=== PATIENT | male | born 1955 | race Caucasian/White ===

== ENCOUNTER 2022-09-11 11:51 | Outpatient (CLI) | payer MEDICARE, BC | END 2022-09-11 11:52 | disposition home or self-care (01) | LOC: BICRAD 11:51 | PROVIDERS: ATTEND Internal Medicine Rheumatology | DX: M19.031 Primary osteoarthritis, right wrist (principal); M13.0 Polyarthritis, unspecified; M18.0 Bilateral primary osteoarthritis of first carpometacarpal joints ==

== ENCOUNTER 2023-01-02 16:19 | Day surgery (SDC) | payer MEDICARE, BC ==
[2023-01-02] MEDS ORDERED: Bupivacaine/Epinephrine 0.25% 30 ML VIAL ONE (16:37)
[2023-01-02] MEDS ORDERED: fentaNYL PF 100 MCG/2 ML SYRINGE ONE (17:02)
[2023-01-02] MEDS ORDERED: Dexamethasone 20 MG/5 ML VIAL ONE (17:04)
[2023-01-02] MEDS ORDERED: Ondansetron PF 4 MG/2 ML Vial ONE (17:04)
[2023-01-02] MEDS ORDERED: Succinylcholine Chloride 100 MG/5 ML SYRINGE FS ONE (17:04)
[2023-01-02] MEDS ORDERED: PROPOFOL 200 MG/20 ML VIAL ONE (17:04)
[2023-01-02] MEDS ORDERED: PHENYLEPHRINE-NS 100 MCG/ML 10 ML SYRINGE ONE (17:04)
[2023-01-02] MEDS ORDERED: ePHEDrine Sulfate 50 MG/10 ML VIAL ONE (17:04)
[2023-01-02] MEDS ORDERED: NEOSTIGMINE 3 MG/3 ML SYR 3 MG/3 ML SYRINGE ONE (17:04)
[2023-01-02] MEDS ORDERED: Glycopyrrolate 0.2 MG/ML 5 ML SYRINGE ONE (17:04)
[2023-01-02] MEDS ORDERED: Lidocaine 1% PF 5 ML VIAL ONE (17:04)
[2023-01-02] MEDS ORDERED: Rocuronium Bromide 10 MG/ML (10ML VIAL) ONE (17:04)
[2023-01-02] MEDS ORDERED: HYDROcodone/Acetaminophen 5/325 mg Tablet ONE (19:13)
== END 2023-01-02 19:58 | disposition home or self-care (01) ==
LOC: SDC/OP 16:19
PROVIDERS: ATTEND Specialist
PROC: 0DTJ4ZZ Resection of Appendix, Percutaneous Endoscopic Approach (ICD-10-PCS; principal; 2023-01-02)
DX: K35.80 Unspecified acute appendicitis (principal)
CPT/HCPCS: 88304; A4649; J1100; J2405; J2704

== ENCOUNTER 2023-04-24 08:56 | Outpatient (CLI) | payer MEDICARE, BC ==
[2023-04-24 09:38] LABS: #Basophils 0.1 10x3/uL (0.0-0.2); #Eosinphils 0.1 10x3/uL (0.0-0.5); #Monocytes 0.6 10x3/uL (0.0-1.1); #Neutrophils 2.9 10x3/uL (1.5-8.4); %Basophils 1.3 % (0.0-2.0); %Eosinophils 1.3 % (0.0-6.0); %Monocytes 11.8 % (0.0-10.0); %Neutrophils 55.2 % (40.0-75.0); Hematocrit 44.8 % (38.8-50.0); Hemoglobin 14.6 g/dL (13.5-17.5); Mean Corpuscular HGB CONC 32.6 g/dL (32.0-36.0); Mean Corpuscular Hemoglobin 30.2 pg (27.0-33.0); Mean Corpuscular Volume 92.8 fl (81.2-95.1); Mean Platelet Volume 9.9 fl (7.4-10.4); Platelet Count 252 10x3/uL (150-450); Red Blood Cell (RBC) Count 4.83 10x6/uL (4.32-5.72); White Blood Cell (WBC) Count 5.3 10x3/uL (3.5-10.5)
[2023-04-24 10:09] LABS: Anion Gap 15 mmol/L (10-20); BUN (Urea Nitrogen) 14 mg/dL (8.4-25.7); Calc. Creatinine Clearance 0 mL/min (70-130); Calcium 9.7 mg/dL (7.8-10.44); Carbon Dioxide 25 mmol/L (23-31); Chloride 106 mmol/L (98-107); Estimated GFR 76; Glucose 96 mg/dL (80-115); Potassium 4.7 mmol/L (3.5-5.1); Sodium 141 mmol/L (136-145)
[2023-04-24 15:20] LABS: Hemoglobin A1c 5.2 % (4.0-6.0)
== END 2023-04-24 08:57 | disposition home or self-care (01) ==
LOC: LABBT 08:56
PROVIDERS: ATTEND Surgery
DX: Z01.812 Encounter for preprocedural laboratory examination (principal); K56.699 Other intestinal obstruction unspecified as to partial versus complete obstruction
CPT/HCPCS: 80048; 83036; 85025

== ENCOUNTER 2023-04-24 09:00 | Inpatient (IN) | payer MEDICARE, BC ==
[2023-04-24 09:22] VITALS: BMI 19.9
[2023-04-29] MEDS ORDERED: fentaNYL PF 100 MCG/2 ML SYRINGE ONE (06:50)
[2023-04-29] MEDS ORDERED: Ketamine 50 MG/ML (10ML VIAL) ONE (06:51)
[2023-04-29] MEDS ORDERED: SUGAMMADEX SODIUM 200 MG/2 ML VIAL ONE (06:51)
[2023-04-29] MEDS ORDERED: Dexmedetomidine 200 MCG/2 ML VIAL ONE (06:51)
[2023-04-29] MEDS ORDERED: Midazolam HCl 2 mg/2 ml Vial ONE (07:00)
[2023-04-29] MEDS ORDERED: EPINEPHrine 1 MG/ML AMP ONE (07:00)
[2023-04-29] MEDS ORDERED: Lidocaine 1% (PF) 30 ML VIAL ONE (07:00)
[2023-04-29] MEDS ORDERED: Bupivacaine PF 0.5% 30 ML VIAL ONE (07:00)
[2023-04-29] MEDS ORDERED: fentaNYL 50 mcg/mL 1 mL Vial ONE ×3 (07:00→13:22)
[2023-04-29] MEDS ORDERED: Sodium Chloride 0.9% 100 ML ONE (07:28)
[2023-04-29] MEDS ORDERED: cefOXitin 2 GM VIAL ONE ×2 (07:28→09:39)
[2023-04-29] MEDS ORDERED: Glycopyrrolate 0.2 MG/ML 5 ML SYRINGE ONE ×2 (07:39)
[2023-04-29] MEDS ORDERED: Lidocaine 1% PF 5 ML VIAL ONE (07:39)
[2023-04-29] MEDS ORDERED: Vecuronium 10 MG VIAL ONE (07:39)
[2023-04-29] MEDS ORDERED: PROPOFOL 200 MG/20 ML VIAL ONE (07:39)
[2023-04-29] MEDS ORDERED: PHENYLEPHRINE-NS 100 MCG/ML 10 ML SYRINGE ONE (07:39)
[2023-04-29] MEDS ORDERED: Dexamethasone 20 MG/5 ML VIAL ONE (07:39)
[2023-04-29] MEDS ORDERED: NEOSTIGMINE 3 MG/3 ML SYR 3 MG/3 ML SYRINGE ONE (07:39)
[2023-04-29] MEDS ORDERED: Rocuronium Bromide 10 MG/ML (10ML VIAL) ONE (07:39)
[2023-04-29] MEDS ORDERED: Albumin 5% 0 ML ONE (07:48)
[2023-04-29] MEDS ORDERED: Sevoflurane 250 ML INH ANEST BOTTLE ONE (07:48)
[2023-04-29] MEDS ORDERED: Phenylephrine 10 MG/ML VIAL ONE (07:48)
[2023-04-29] MEDS ORDERED: Ondansetron PF 4 MG/2 ML Vial IVP PRN (10:52)
[2023-04-29] MEDS ORDERED: Fentanyl 100 MCG/2 ML VIAL SLOW IVP PRN (10:52)
[2023-04-29] MEDS ORDERED: Promethazine HCl 25 MG/ML VIAL IM PRN (10:52)
[2023-04-29] MEDS ORDERED: Ketorolac Tromethamine 30 MG/ML VIAL IVP PRN (10:52)
[2023-04-29] MEDS ORDERED: hydrALAZINE 20 MG/ML VIAL SLOW IVP PRN (10:52)
[2023-04-29] MEDS ORDERED: Ipratropium/Albuterol 3 ML NEB NEB PRN (10:52)
[2023-04-29] MEDS: D5 1/2 NS w/20 mEq KCL 1,000 ML IV SCH ×2 (15:56→20:52)
[2023-04-29] MEDS: cefOXitin Sodium 1 GM in Sodium Chloride 0.9% 100 ML IVPB SCH ×2 (17:50→23:50)
[2023-04-29] MEDS: Famotidine/PF 20 mg/2ml Vial SLOW IVP SCH (21:21)
[2023-04-29] MEDS: Famotidine 20 MG TAB PO SCH (21:21)
[2023-04-30] MEDS: D5 1/2 NS w/20 mEq KCL 1,000 ML IV SCH ×2 (01:00→09:18)
[2023-04-30 05:41] LABS: #Monocytes 0.9 thou/uL (0.11-0.59); #Neutrophils 5.4 thou/uL (1.40-6.50); %Basophils 0.3 % (0.0-1.0); %Eosinophils 0.1 % (0.0-10.0); %Lymphocytes 18.2 % (21.0-51.0); %Monocytes 11.3 % (0.0-10.0); %Neutrophils 69.5 % (42.0-75.0); Hematocrit 35.9 % (42.0-52.0); Hemoglobin 11.8 g/dL (14.0-18.0); Mean Corpuscular HGB CONC 32.9 g/dL (32.0-36.0); Mean Corpuscular Hemoglobin 30.6 pg (27.0-31.0); Mean Platelet Volume 9.6 fL (7.4-10.4); Platelet Count 191 10x3/uL (130-400); RBC Distribution Width 13.6 % (11.5-14.5); Red Blood Cell (RBC) Count 3.86 mill/uL (4.70-6.10); White Blood Cell (WBC) Count 7.8 10x3/uL (4.8-10.8)
[2023-04-30 06:08] LABS: Anion Gap 9 mmol/L (10-20); BUN (Urea Nitrogen) 13 mg/dL (8.4-25.7); Calc. Creatinine Clearance 52 mL/min (70-130); Calcium 7.8 mg/dL (7.8-10.44); Carbon Dioxide 21 mmol/L (23-31); Chloride 107 mmol/L (98-107); Estimated GFR 82; Glucose 135 mg/dL (80-115); Potassium 4.5 mmol/L (3.5-5.1); Sodium 132 mmol/L (136-145)
[2023-04-30] MEDS: Famotidine/PF 20 mg/2ml Vial SLOW IVP SCH ×2 (09:16→21:16)
[2023-04-30] MEDS: Levothyroxine 150 MCG TAB PO SCH (09:16)
[2023-04-30] MEDS: Famotidine 20 MG TAB PO SCH ×2 (09:16→21:16)
[2023-04-30] MEDS ORDERED: Acetaminophen 325 MG TAB PO PRN (10:25)
[2023-04-30] MEDS ORDERED: Simethicone Chewable 80 MG TAB PO PRN (12:44)
[2023-04-30] MEDS: HYDROcodone/Acetaminophen 7.5/325 mg Tablet PO PRN (18:36)
[2023-05-01] MEDS: D5 1/2 NS w/20 mEq KCL 1,000 ML IV SCH (00:14)
[2023-05-01 07:29] VITALS: BP 161/89; TEMP 98.1
[2023-05-01] MEDS: Famotidine/PF 20 mg/2ml Vial SLOW IVP SCH (08:41)
[2023-05-01] MEDS: Famotidine 20 MG TAB PO SCH (08:42)
[2023-05-01] MEDS: Levothyroxine 150 MCG TAB PO SCH (11:04)
[2023-05-01] MEDS: HYDROcodone/Acetaminophen 7.5/325 mg Tablet PO PRN (11:04)
== END 2023-05-01 13:07 | disposition home or self-care (01) | DRG 330 ==
LOC: SURG A 04-29 06:07 → SURG B 04-29 15:16
PROVIDERS: ADMIT Surgery; ATTEND Surgery
PROC: 0DTN4ZZ Resection of Sigmoid Colon, Percutaneous Endoscopic Approach (ICD-10-PCS; principal; 2023-04-29)
PROC: 8E0W4CZ Robotic Assisted Procedure of Trunk Region, Percutaneous Endoscopic Approach (ICD-10-PCS; 2023-04-29)
DX: K56.699 Other intestinal obstruction unspecified as to partial versus complete obstruction (principal); K62.5 Hemorrhage of anus and rectum
CPT/HCPCS: 36415; 36416; 80048; 85025; 88307; A4649; C1889; J0171; J0694; J1100; J1885; J2001; J2250; J2370; J2704; J3010; J3480; J3490; P9045; S0020; S0028

== ENCOUNTER 2024-10-18 11:04 | Outpatient (CLI) | payer MEDICARE ==
[2024-10-18] MEDS ORDERED: Iopamidol 370 76% 100 ML VIAL ONE (15:06)
[2024-10-18] MEDS ORDERED: Magnevist 469MG/ML 20 ML VIAL ONE (15:24)
== END 2024-10-18 11:05 | disposition home or self-care (01) ==
LOC: BICCT 11:04
PROVIDERS: ATTEND Physician Assistant Medical
DX: R10.9 Unspecified abdominal pain (principal); R41.82 Altered mental status, unspecified; J32.4 Chronic pansinusitis; R90.82 White matter disease, unspecified; R93.0 Abnormal findings on diagnostic imaging of skull and head, not elsewhere classified; K63.89 Other specified diseases of intestine
CPT/HCPCS: 70553; 74177; Q9967